=== PATIENT | female | born 1965 | race Caucasian/White ===

== ENCOUNTER 2018-03-04 19:16 | Emergency (ER) | payer MEDICAID ==
[~2018-03-04] VITALS: Ht 160 cm; Wt 94.4 kg
[2018-03-04 19:57] LABS: BASOPHILS # (AUTO) 0.03 x10^3/uL (0-0.1); BASOPHILS % (AUTO) 0 % (0-1); EOSINOPHILS # (AUTO) 0.31 x10^3/uL (0-0.4); EOSINOPHILS % (AUTO) 4 % (1-7); LYMPHOCYTES # (AUTO) 2.23 x10^3/uL (1-3.4); LYMPHOCYTES % (AUTO) 27 % (22-44); MD NO; MEAN CORPUSCULAR HEMOGLOBIN 29.6 pg (27.0-34.8); MEAN CORPUSCULAR HGB CONC 33.6 g/dL (32.4-35.8); MEAN CORPUSCULAR VOLUME 88.2 fL (80-100); MONOCYTES # (AUTO) 0.54 x10^3/uL (0.2-0.8); MONOCYTES % (AUTO) 7 % (2-9); NEUTROPHILS # (AUTO) 5.15 x10^3/uL (1.8-6.8); NEUTROPHILS % (AUTO) 62 % (42-75); PLATELET COUNT 274 x10^3/uL (130-400); RED BLOOD COUNT 4.57 x10^6/uL (3.82-5.3); RED CELL DISTRIBUTION WIDTH 14.5 % (9.6-15.2)
[2018-03-04 20:06] LABS: ALBUMIN 3.9 g/dL (3.4-5.0); ANION GAP 6 mmol/L (5-15); CALCIUM 8.3 mg/dL (8.5-10.1); CHLORIDE 109 mmol/L (98-107); CREATININE 0.89 mg/dL (0.55-1.02)
[2018-03-04 20:16] LABS: FREE T4 (FREE THYROXINE) 1.01 ng/dL (0.76-1.46)
[2018-03-04 20:40] VITALS: BP 142/85
== END 2018-03-04 21:09 | disposition home or self-care (01) ==
LOC: ED 21:02
DX: M54.16 Radiculopathy, lumbar region (principal); M25.551 Pain in right hip; M79.651 Pain in right thigh; M25.561 Pain in right knee; M25.571 Pain in right ankle and joints of right foot; M79.671 Pain in right foot; F32.9 Major depressive disorder, single episode, unspecified; F41.1 Generalized anxiety disorder
CPT/HCPCS: 36415; 70360; 80048; 82040; 84439; 84443; 85025; 99284

== ENCOUNTER 2018-08-24 19:49 | Emergency (ER) | payer MEDICAID ==
[~2018-08-24] VITALS: Ht 160 cm; Wt 93.7 kg
[2018-08-24 20:00] VITALS: BP 131/52
[2018-08-24] MEDS ORDERED: BACITRACIN ZINC OINT 500U/GM, 0.9 GM ONE (20:48)
--- NOTE | 2018-08-24 20:52 | NUR ---
WOUND CARE COMPLETED. DC EDUCATION PROVIDED, PT DEMONSTRATES UNDERSTANDING. PT AMBULATED STEADILY TO DC WITH RN
== END 2018-08-24 20:55 | disposition home or self-care (01) ==
LOC: ED 20:49
DX: L03.032 Cellulitis of left toe (principal); I10 Essential (primary) hypertension; F41.1 Generalized anxiety disorder; F32.9 Major depressive disorder, single episode, unspecified
CPT/HCPCS: 99283

== ENCOUNTER 2018-10-07 18:05 | Emergency (ER) | payer MEDICAID ==
[~2018-10-07] VITALS: Ht 160 cm; Wt 94.9 kg
[2018-10-07 18:19] VITALS: BP 144/88
--- NOTE | 2018-10-07 18:40 | NUR ---
"MY TOE HAD A ULCER. I THINK ITS MORE INFECTED." MINIMALLY REDDNED/SWOLLEN. NO DISCHARGE PROVIDER TO BEDSIDE FOR EVAL
== END 2018-10-07 19:11 | disposition home or self-care (01) ==
LOC: ED 18:50
DX: L03.032 Cellulitis of left toe (principal); M54.9 Dorsalgia, unspecified; G89.29 Other chronic pain; F41.1 Generalized anxiety disorder; F32.9 Major depressive disorder, single episode, unspecified; Z87.891 Personal history of nicotine dependence
CPT/HCPCS: 99283

== ENCOUNTER 2020-12-14 19:07 | Emergency (ER) | payer MEDICAID ==
[~2020-12-14] VITALS: Ht 160 cm; Wt 81.9 kg
[2020-12-14 19:48] LABS: BASOPHILS % (AUTO) 0 % (0-1); EOSINOPHILS % (AUTO) 2 % (1-7); LYMPHOCYTES % (AUTO) 10 % (22-44); MEAN CORPUSCULAR HEMOGLOBIN 29.6 pg (27.0-34.8); MEAN CORPUSCULAR HGB CONC 34.5 g/dL (32.4-35.8); MEAN PLATELET VOLUME 7.9 fL (7.4-10.4); MONOCYTES % (AUTO) 9 % (2-9); NEUTROPHILS % (AUTO) 79 % (42-75); PLATELET COUNT 223 x10^3/uL (130-400); RED BLOOD COUNT 4.16 x10^6/uL (3.82-5.3); RED CELL DISTRIBUTION WIDTH 14.6 % (9.6-15.2)
[2020-12-14 20:01] LABS: ALANINE AMINOTRANSFERASE 36 U/L (12-78); ALBUMIN 3.1 g/dL (3.4-5.0); ANION GAP 7 mmol/L (5-15); CALCIUM 8.7 mg/dL (8.5-10.1); CHLORIDE 102 mmol/L (98-107); CREATININE 2.09 mg/dL (0.55-1.02)
[2020-12-14 20:02] LABS: ALKALINE PHOSPHATASE 84 U/L (45-117); BILIRUBIN,TOTAL 0.6 mg/dL (0.2-1.0); TOTAL PROTEIN 7.5 g/dL (6.4-8.2)
--- NOTE | 2020-12-14 21:25 | NUR ---
PATIENT AMBULATED WITHOUT ASSISTANCE FROM THE LOBBY TO ROOM 6, PATIENT ATTEMPTING TO PROVIDE UA AT THIS TIME.
[2020-12-14] MEDS ORDERED: SODIUM CHLORIDE 0.9% 1,000ML IVBOLUS ONE (22:00)
[2020-12-14 22:07] LABS: MICROSCOPIC INDICATED
[2020-12-14 22:29] VITALS: BP 102/38
[2020-12-14] MEDS ORDERED: CEFTRIAXONE 1,000 MG in DEXTROSE 5% 50 ML IVPB ONE (23:00)
== END 2020-12-15 00:02 | disposition home or self-care (01) ==
LOC: ED 23:56
DX: N30.01 Acute cystitis with hematuria (principal); R42 Dizziness and giddiness; N28.9 Disorder of kidney and ureter, unspecified; I10 Essential (primary) hypertension
CPT/HCPCS: 36415; 80053; 81001; 85025; 87077; 87086; 87186; 93005; 96360; 96361; 99284; J7030